=== PATIENT | female | born 1990 | race Caucasian/White ===

== ENCOUNTER 2020-09-02 03:09 | Emergency (ER) | payer MEDICAID, OTHER ==
[~2020-09-02] VITALS: Ht 157.5 cm; Wt 121.6 kg
[2020-09-02 03:21] VITALS: BP 138/78
[2020-09-02] MEDS ORDERED: BENZ-13 PO (03:38)
[2020-09-02] MEDS ORDERED: DEXA4TAB PO (03:38)
[2020-09-02] MEDS ORDERED: FLUT16SP BNOSTRILS (03:38)
[2020-09-02] MEDS ORDERED: DEXAMETHASONE SOD PHOSPHATE 10 MG/ML VIAL ONE (03:39)
[2020-09-02] MEDS ORDERED: DEXAMETHASONE SOD PHOSPHATE 4 MG/ML VIAL IM ONE (04:00)
== END 2020-09-02 03:45 | disposition home or self-care (01) ==
LOC: ER 03:09
DX: J06.9 Acute upper respiratory infection, unspecified (principal); Z20.822 Contact with and (suspected) exposure to COVID-19; Z86.16 Personal history of COVID-19
CPT/HCPCS: 96372; 99283; C9803; J1100; U0003